=== PATIENT | male | born 1965 | race Caucasian/White ===

== ENCOUNTER 2020-09-30 08:38 | Inpatient (IN) ==
[2020-09-30] MEDS ORDERED: DOCUSATE SODIUM 100 MG CAPSULE PO PRN (09:52)
[2020-09-30] MEDS ORDERED: PROMETHAZINE 25 MG TABLET PO PRN (09:52)
[2020-09-30] MEDS ORDERED: hydrALAZINE 20 MG/1 ML VIAL IV PRN (09:52)
[2020-09-30] MEDS ORDERED: MAGNESIUM SULF RIDER 2 GM in PREMIX 1 EACH IV PRN (09:52)
[2020-09-30] MEDS ORDERED: MAGNESIUM SULF RIDER 4 GM in PREMIX 1 EACH IV PRN (09:52)
[2020-09-30] MEDS ORDERED: MORPHINE 4 MG/1 ML VIAL IV PRN (09:52)
[2020-09-30] MEDS ORDERED: ACETAMINOPHEN 325 MG TABLET PO PRN (09:52)
[2020-09-30] MEDS ORDERED: ALUMINUM/MAGNES/SIMETH MAX STR 30 ML UDCUP PO PRN (09:52)
[2020-09-30] MEDS ORDERED: ZALEPLON 5 MG CAPSULE PO PRN (09:52)
[2020-09-30] MEDS ORDERED: guaiFENesin/DM ER 600-30 MG TABLET PO PRN (09:52)
[2020-09-30] MEDS ORDERED: ONDANSETRON 4 MG/2 ML VIAL IV PRN (09:52)
[2020-09-30 09:55] LABS: Basophils # 0.1 10*3/uL (0.0-0.2); Basophils % 0.6 % (0.0-0.8); Eosinophils # 0.1 10*3/uL (0.0-0.87); Eosinophils % 0.4 % (0.00-10.9); Hematocrit 41.5 VOL% (42.0-52.0); Hemoglobin 15.1 GM/DL (14.0-18.0); Immature Granulocytes % 1.5 %; Lymphocytes # 1.9 10*3/uL (1.4-4.0); Lymphocytes % 13.7 % (21.2-54.2); Mean Corpuscular HGB Conc 36.4 GM/DL (32-36); Mean Corpuscular Volume 89.4 FL (87-102); Mean Platelet Volume 9.8 FL (9.6-12.0); Monocytes % 5.5 % (1.7-12.7); Neutrophils % 78.3 % (38.7-73.9); Platelet Count 254 T/CUMM (130-400); Red Blood Count 4.64 MC/CUMM (3.8-5.5); Red Cell Distribution Width 13.3 % (9.3-17.3); White Blood Count 13.7 T/CUMM (4-12)
[2020-09-30] MEDS ORDERED: HEPARIN 5,000 UNIT/1 ML VIAL IV STA (10:01)
[2020-09-30] MEDS ORDERED: HEPARIN DRIP 25,000 UNITS/500 ML PREMIX IV ONE (10:13)
[2020-09-30 10:15] LABS: Alanine Aminotransferase 43 U/L (16-61); Albumin 4.2 G/DL (3.4-5.0); Alkaline Phosphatase 65 U/L (45-117); Aspartate Amino Transferase 42 U/L (0-37); Blood Urea Nitrogen 6 MG/DL (7-18); Calcium 9.1 MG/DL (8.5-10.1); Estimated Glom Filtration Rate 120 ML/MIN; Glucose 85 MG/DL (74-106); Osmolality,Calculated 240.1 MOS/KG (273-304); Total Protein 7.9 G/DL (6.4-8.3)
[2020-09-30] MEDS ORDERED: HEPARIN DRIP 25,000 UNITS/500 ML PREMIX IV SCH (10:30)
[2020-09-30] MEDS ORDERED: DIAZEPAM 5 MG TABLET PO ONE (15:51)
[2020-09-30] MEDS ORDERED: POTASSIUM CHLORIDE RIDER 10 MEQ in PREMIX 1 EACH IV PRN (15:51)
[2020-09-30] MEDS ORDERED: diphenhydrAMINE CAP 25 MG CAPSULE PO ONE (15:51)
[2020-09-30] MEDS ORDERED: MIDAZOLAM 2 MG/2 ML VIAL ONE (15:55)
[2020-09-30] MEDS ORDERED: fentaNYL 100 MCG/2 ML VIAL ONE (15:56)
[2020-09-30] MEDS ORDERED: HEPARIN 5,000 UNIT/1 ML VIAL ONE ×2 (15:56→16:45)
[2020-09-30] MEDS ORDERED: LIDOCAINE 1% 20 ML VIAL ONE (16:03)
[2020-09-30] MEDS ORDERED: HYDROmorphone 2 MG/1 ML VIAL ONE (16:05)
[2020-09-30] MEDS ORDERED: ASPIRIN EC 325 MG TABLET PO STA (18:23)
[2020-09-30] MEDS: SODIUM CHLORIDE 0.9% 1,000 ML IV SCH (18:30)
[2020-09-30] MEDS: ROSUVASTATIN 20 MG TABLET PO SCH (18:42)
[2020-09-30] MEDS: SULFAMETHOX/TRIMETHOPRIM 800-160 MG TABLET PO SCH (21:06)
[2020-09-30] MEDS: OXACILLIN 1,000 MG in SODIUM CHLORIDE 0.9% 100 ML IV SCH ×2 (21:06→22:06)
[2020-10-01] MEDS: diphenhydrAMINE CAP 25 MG CAPSULE PO PRN (03:20)
[2020-10-01] MEDS: SODIUM CHLORIDE 0.9% 1,000 ML IV SCH ×3 (03:55→19:17)
[2020-10-01 03:59] LABS: Basophils # 0.1 10*3/uL (0.0-0.2); Basophils % 0.4 % (0.0-0.8); Eosinophils # 0.1 10*3/uL (0.0-0.87); Eosinophils % 0.4 % (0.00-10.9); Hematocrit 37.2 VOL% (42.0-52.0); Hemoglobin 13.1 GM/DL (14.0-18.0); Immature Granulocytes % 0.8 %; Immature Granulocytes Absolute 0.12 #; Lymphocytes # 0.4 10*3/uL (1.4-4.0); Lymphocytes % 2.7 % (21.2-54.2); Mean Corpuscular HGB Conc 35.2 GM/DL (32-36); Mean Corpuscular Volume 92.1 FL (87-102); Mean Platelet Volume 9.9 FL (9.6-12.0); Monocytes % 5.4 % (1.7-12.7); Neutrophils % 90.3 % (38.7-73.9); Platelet Count 213 T/CUMM (130-400); Red Blood Count 4.04 MC/CUMM (3.8-5.5); Red Cell Distribution Width 13.7 % (9.3-17.3); White Blood Count 14.2 T/CUMM (4-12)
[2020-10-01] MEDS ORDERED: diphenhydrAMINE CAP 25 MG CAPSULE PO ONE (04:14)
[2020-10-01] MEDS ORDERED: methylPREDNISolone SOD SUC 125 MG/2 ML VIAL IV ONE (04:14)
[2020-10-01] MEDS ORDERED: SODIUM CHLORIDE 0.9% 500 ML IV ONE (04:15)
[2020-10-01 04:16] LABS: Albumin 3.5 G/DL (3.4-5.0); Bilirubin,Total 0.7 MG/DL (0.2-1.0); Calcium 8.4 MG/DL (8.5-10.1); Osmolality,Calculated 255.9 MOS/KG (273-304); Total Protein 6.6 G/DL (6.4-8.3)
[2020-10-01 04:25] LABS: Calcium 8.4 MG/DL (8.5-10.1); Osmolality,Calculated 256.9 MOS/KG (273-304)
[2020-10-01 04:36] LABS: Band Neutrophils 1 % (0-10); Eosinophils 1 % (0-10); Hypochromasia Slight; Lymphocytes 3 % (20-55); Microcytosis Slight; Segmented Neutrophils 88 % (50-85); Total Cells Counted 100
[2020-10-01] MEDS: OXACILLIN 1,000 MG in SODIUM CHLORIDE 0.9% 100 ML IV SCH ×2 (05:13→07:03)
[2020-10-01] MEDS ORDERED: TEMAZEPAM 15 MG CAPSULE PO PRN (07:50)
[2020-10-01] MEDS ORDERED: HEPARIN 5,000 UNIT/1 ML VIAL ONE (08:53)
[2020-10-01] MEDS ORDERED: BACITRACIN 50,000 UNIT VIAL ONE (08:53)
[2020-10-01] MEDS ORDERED: ceFAZolin 1,000 MG VIAL ONE (08:53)
[2020-10-01] MEDS ORDERED: fentaNYL 100 MCG/2 ML VIAL ONE (09:02)
[2020-10-01] MEDS ORDERED: LIDOCAINE 2% 5 ML VIAL ONE (09:03)
[2020-10-01] MEDS ORDERED: MIDAZOLAM 2 MG/2 ML VIAL ONE (09:03)
[2020-10-01] MEDS ORDERED: ROCURONIUM 50 MG/5 ML VIAL IV ONE (09:03)
[2020-10-01] MEDS ORDERED: propofoL 200 MG/20 ML VIAL IV ONE (09:03)
[2020-10-01] MEDS ORDERED: ALBUMIN 5% 12.5 GM/250 ML VIAL IV ONE (09:09)
[2020-10-01] MEDS: SULFAMETHOX/TRIMETHOPRIM 800-160 MG TABLET PO SCH (10:02)
[2020-10-01] MEDS ORDERED: HEPARIN 10,000 UNIT/10 ML VIAL ONE (10:29)
[2020-10-01] MEDS ORDERED: ACETAMINOPHEN 1,000 MG/100 ML VIAL IV ONE (10:38)
[2020-10-01] MEDS ORDERED: SODIUM CHLORIDE 0.9% 250 ML IV ONE (11:03)
[2020-10-01] MEDS ORDERED: PHENYLEPHRINE 10 MG/1 ML VIAL IV ONE (11:04)
[2020-10-01] MEDS ORDERED: PROTAMINE SULFATE 50 MG/5 ML VIAL IV ONE (11:08)
[2020-10-01] MEDS ORDERED: NEOSTIGMINE 10 MG/10 ML VIAL ONE (11:14)
[2020-10-01] MEDS ORDERED: GLYCOPYRROLATE 0.4 MG/2 ML VIAL ONE (11:14)
[2020-10-01] MEDS ORDERED: niCARdipine INJ 25 MG in SODIUM CHLORIDE 0.9% 240 ML IV PRN (12:00)
[2020-10-01] MEDS ORDERED: PHENYLEPHRINE 1 MG/10 ML SYRINGE IV ONE (12:03)
[2020-10-01] MEDS: CLOPIDOGREL 75 MG TABLET PO SCH (12:31)
[2020-10-01] MEDS: ASPIRIN CHEW 81 MG TABLET PO SCH (12:31)
[2020-10-01] MEDS: NEBIVOLOL 10 MG TABLET PO SCH (12:31)
[2020-10-01] MEDS: ROSUVASTATIN 20 MG TABLET PO SCH (12:31)
[2020-10-01] MEDS: PANTOPRAZOLE 40 MG TABLET PO SCH (12:31)
[2020-10-01 12:53] VITALS: BP 102/56
[2020-10-01] MEDS: DOXYCYCLINE HYCLATE 100 MG CAPSULE PO SCH (21:30)
[2020-10-01] MEDS: CLINDAMYCIN 300 MG CAPSULE PO SCH (22:38)
[2020-10-02] MEDS: diphenhydrAMINE CAP 25 MG CAPSULE PO PRN (01:18)
[2020-10-02] MEDS: SODIUM CHLORIDE 0.9% 1,000 ML IV SCH (04:00)
[2020-10-02 04:57] LABS: Basophils % 0.3 % (0.0-0.8); Eosinophils % 0.2 % (0.00-10.9); Hematocrit 26.4 VOL% (42.0-52.0); Immature Granulocytes % 0.6 %; Immature Granulocytes Absolute 0.07 #; Lymphocytes # 0.9 10*3/uL (1.4-4.0); Mean Corpuscular HGB Conc 34.1 GM/DL (32-36); Mean Corpuscular Volume 94.6 FL (87-102); Mean Platelet Volume 10.3 FL (9.6-12.0); Monocytes % 8.6 % (1.7-12.7); Neutrophils % 82.3 % (38.7-73.9); Platelet Count 181 T/CUMM (130-400); Red Blood Count 2.79 MC/CUMM (3.8-5.5); Red Cell Distribution Width 13.7 % (9.3-17.3); White Blood Count 11.7 T/CUMM (4-12)
[2020-10-02 05:11] LABS: Calcium 6.2 MG/DL (8.5-10.1); Osmolality,Calculated 274.5 MOS/KG (273-304)
[2020-10-02] MEDS: CLINDAMYCIN 300 MG CAPSULE PO SCH (05:20)
[2020-10-02] MEDS ORDERED: POTASSIUM CHLORIDE 20 MEQ TABLET PO ONE ×2 (07:56→10:00)
[2020-10-02] MEDS: ASPIRIN CHEW 81 MG TABLET PO SCH (09:01)
[2020-10-02] MEDS: ROSUVASTATIN 20 MG TABLET PO SCH (09:01)
[2020-10-02] MEDS: PANTOPRAZOLE 40 MG TABLET PO SCH (09:01)
[2020-10-02] MEDS: DOXYCYCLINE HYCLATE 100 MG CAPSULE PO SCH (09:01)
[2020-10-02] MEDS: CLOPIDOGREL 75 MG TABLET PO SCH (09:01)
[2020-10-02] MEDS: NEBIVOLOL 10 MG TABLET PO SCH (09:01)
[2020-10-03] MEDS ORDERED: PNEUMOCOCCAL VACCINE (23 VALENT) 0.5 ML VIAL IM ONE (18:40)
== END 2020-10-02 10:45 | disposition home or self-care (01) | DRG 253 ==
LOC: N.ED 08:38 → N.EDINP 08:38 → N.CC 18:16
PROVIDERS: ADMIT Internal Medicine Cardiovascular Disease; ATTEND Internal Medicine Cardiovascular Disease

== ENCOUNTER 2022-09-11 05:57 | Observation (INO) ==
[~2022-09-11 05:57] MED LIST: ASPIRIN 325 MG TABLET PO ONE; DIAZEPAM 5 MG TABLET PO ONE; MAGNESIUM SULF RIDER 2 GM/50 ML PREMIX IV PRN; POTASSIUM CHLORIDE RIDER 10 MEQ/100 ML PREMIX IV PRN; diphenhydrAMINE CAP 50 MG CAPSULE PO ONE
[2022-09-11 06:54] LABS: Basophils # 0.1 10*3/uL (0.0-0.2); Basophils % 1.2 % (0.0-0.8); Eosinophils # 0.2 10*3/uL (0.0-0.87); Eosinophils % 2.7 % (0.00-10.9); Hemoglobin 15.4 GM/DL (14.0-18.0); Immature Granulocytes % 0.4 %; Immature Granulocytes Absolute 0.03 #; Lymphocytes # 1.7 10*3/uL (1.4-4.0); Lymphocytes % 22.1 % (21.2-54.2); Mean Corpuscular HGB Conc 32.8 GM/DL (32-36); Mean Corpuscular Volume 96.3 FL (87-102); Monocytes # 0.5 10*3/uL (0.11-0.8); Monocytes % 6.1 % (1.7-12.7); Neutrophils % 67.5 % (38.7-73.9); Platelet Count 262 T/CUMM (130-400); Red Blood Count 4.88 MC/CUMM (3.8-5.5); Red Cell Distribution Width 13.6 % (9.3-17.3); White Blood Count 7.5 T/CUMM (4-12)
[2022-09-11] MEDS ORDERED: DIAZEPAM 5 MG TABLET ONE ×2 (06:56→07:46)
[2022-09-11] MEDS ORDERED: ASPIRIN 325 MG TABLET ONE ×2 (06:56→07:46)
[2022-09-11] MEDS ORDERED: diphenhydrAMINE CAP 50 MG CAPSULE ONE ×2 (06:56→07:46)
[2022-09-11 07:02] LABS: PT Patient Result 11.1 SECS (10.1-12.1)
[2022-09-11] MEDS: SODIUM CHLORIDE 0.9% 1,000 ML IV SCH ×3 (07:12→20:17)
[2022-09-11 07:21] LABS: Alanine Aminotransferase 38 U/L (16-61); Albumin 3.6 G/DL (3.4-5.0); Alkaline Phosphatase 68 U/L (45-117); Aspartate Amino Transferase 34 U/L (0-37); Bilirubin,Total < 0.39 MG/DL (0.20-1.00); Blood Urea Nitrogen 4 MG/DL (7-18); Calcium 8.9 MG/DL (8.5-10.1); Carbon Dioxide 27 MMOL/L (21-32); Chloride 104 MMOL/L (98-107); Glucose 108 MG/DL (74-106); Potassium 3.7 MMOL/L (3.5-5.1); Sodium 136 MMOL/L (136-145); Total Protein 7.6 G/DL (6.4-8.2)
[2022-09-11] MEDS ORDERED: MIDAZOLAM 2 MG/2 ML VIAL ONE (09:44)
[2022-09-11] MEDS ORDERED: HYDROmorphone 1 MG/1 ML SYRINGE ONE ×2 (09:44→13:34)
[2022-09-11] MEDS ORDERED: NITROGLYCERIN DRIP 50 MG/250 ML BOTTLE IV ONE (09:52)
[2022-09-11] MEDS ORDERED: VERAPAMIL 5 MG/2 ML VIAL ONE ×2 (09:52→10:44)
[2022-09-11] MEDS ORDERED: HEPARIN 5,000 UNIT/1 ML VIAL ONE ×2 (10:15→11:46)
[2022-09-11] MEDS ORDERED: TIROFIBAN 5,000 MCG/100 ML PREMIX IV ONE (12:18)
[2022-09-11] MEDS ORDERED: LABETALOL 20 MG/4 ML SYRINGE IV ONE (13:32)
[2022-09-11] MEDS ORDERED: CLOPIDOGREL 300 MG TABLET ONE (13:37)
[2022-09-11] MEDS ORDERED: VANCOMYCIN 500 MG VIAL ONE (13:40)
[2022-09-11] MEDS: carvediloL 3.125 MG TABLET PO SCH (16:30)
[2022-09-11] MEDS: cilostazoL 50 MG TABLET PO SCH (20:16)
[2022-09-12 05:06] LABS: Basophils # 0.1 10*3/uL (0.0-0.2); Basophils % 0.8 % (0.0-0.8); Eosinophils # 0.2 10*3/uL (0.0-0.87); Eosinophils % 1.6 % (0.00-10.9); Hematocrit 36.6 VOL% (42.0-52.0); Hemoglobin 12.3 GM/DL (14.0-18.0); Immature Granulocytes % 0.4 %; Immature Granulocytes Absolute 0.04 #; Lymphocytes # 1.3 10*3/uL (1.4-4.0); Mean Corpuscular HGB Conc 33.6 GM/DL (32-36); Mean Corpuscular Volume 96.1 FL (87-102); Mean Platelet Volume 10.3 FL (9.6-12.0); Monocytes # 0.9 10*3/uL (0.11-0.8); Monocytes % 9.5 % (1.7-12.7); Neutrophils % 74.7 % (38.7-73.9); Platelet Count 207 T/CUMM (130-400); Red Blood Count 3.81 MC/CUMM (3.8-5.5); Red Cell Distribution Width 13.6 % (9.3-17.3); White Blood Count 9.7 T/CUMM (4-12)
[2022-09-12 05:22] LABS: Calcium 8.3 MG/DL (8.5-10.1); Osmolality,Calculated 272.7 MOS/KG (273-304); Potassium 3.7 MMOL/L (3.5-5.1)
[2022-09-12] MEDS: SODIUM CHLORIDE 0.9% 1,000 ML IV SCH (06:05)
[2022-09-12 07:34] VITALS: BP 128/55
[2022-09-12] MEDS: cilostazoL 50 MG TABLET PO SCH (08:35)
[2022-09-12] MEDS: carvediloL 3.125 MG TABLET PO SCH (08:35)
[2022-09-12] MEDS ORDERED: buPROPion XL 150 MG TABLET PO SCH (09:00)
[2022-09-12] MEDS ORDERED: ASPIRIN CHEW 81 MG TABLET PO SCH (09:00)
[2022-09-12] MEDS ORDERED: ROSUVASTATIN 20 MG TABLET PO SCH (09:00)
[2022-09-12] MEDS ORDERED: EZETIMIBE 10 MG TABLET PO SCH (09:00)
[2022-09-12] MEDS ORDERED: CLOPIDOGREL 75 MG TABLET PO SCH (09:00)
== END 2022-09-12 10:16 | disposition home or self-care (01) ==
LOC: N.5E 05:57 → N.CL 05:57 → N.5E 15:05
PROVIDERS: ADMIT Internal Medicine Cardiovascular Disease; ATTEND Internal Medicine Cardiovascular Disease